=== PATIENT | female | born 1990 | race African-American/Black ===

== ENCOUNTER 2016-07-21 09:11 | Emergency (ER) | payer OTHER ==
[2016-07-21] MEDS ORDERED: AMOXicillin 250 MG CAP ONE (09:40)
[2016-07-21] MEDS ORDERED: diphenhydrAMINE HCl 25 MG CAP ONE (09:40)
[2016-07-21] MEDS ORDERED: HYDROcodone/Acetaminophen 10/325 mg Tablet ONE (09:40)
== END 2016-07-21 09:54 | disposition home or self-care (01) ==
LOC: MADERS 09:11
DX: K04.7 Periapical abscess without sinus (principal)
CPT/HCPCS: 99283

== ENCOUNTER 2016-07-22 23:01 | Emergency (ER) | payer OTHER ==
[2016-07-22] MEDS ORDERED: Acetaminophen/Codeine 30-300mg Tablet ONE (23:29)
[2016-07-22] MEDS ORDERED: Lidocaine Viscous Sol 2% 15 ml UD Cup ONE (23:30)
[2016-07-22] MEDS ORDERED: Clindamycin 150 MG CAP ONE (23:30)
== END 2016-07-22 23:58 | disposition home or self-care (01) ==
LOC: MADERS 23:01
DX: K05.10 Chronic gingivitis, plaque induced (principal); Z79.2 Long term (current) use of antibiotics; Z79.899 Other long term (current) drug therapy
CPT/HCPCS: 99282

== ENCOUNTER 2016-08-15 21:07 | Emergency (ER) | payer OTHER ==
[2016-08-15] MEDS ORDERED: Acetaminophen 500 MG TAB ONE (21:42)
[2016-08-15] MEDS ORDERED: Ondansetron ODT 4 MG TAB ONE (21:42)
[2016-08-15] MEDS ORDERED: Penicillin V Potassium 250 MG TAB ONE (21:42)
== END 2016-08-15 22:03 | disposition home or self-care (01) ==
LOC: MADERS 21:07
DX: J02.0 Streptococcal pharyngitis (principal); E86.0 Dehydration; D64.9 Anemia, unspecified
CPT/HCPCS: 87430; 99283; Q0162

== ENCOUNTER 2017-11-25 10:08 | Emergency (ER) | payer MEDICAID, OTHER ==
[2017-11-25 10:51] LABS: Bilirubin Small (Negative); Blood, Urine Negative (Negative); Glucose, Urine (Dipstick) Negative (Negative); Leukocyte Negative (Negative); Nitrite Negative (Negative); Protein, Urine (Dipstick) 30 mg/dL (Neg-Trace)
[2017-11-25 10:57] LABS: Clarity Cloudy (Clear); Pregnancy Test - Urine (BHCG) Negative (Negative); Specific Gravity, Urine 1.033 (1.002-1.036)
[2017-11-25] MEDS ORDERED: Ondansetron ODT 4 MG TAB ONE (10:57)
[2017-11-25 10:58] LABS: Pregu Control Background? CLEAR/WHITE (CLR/WHITE); Pregu Control Bar Appear? YES (CONTROL BAR); Specific Gravity 1.033 (1.002-1.036)
[2017-11-25 11:03] LABS: RBC/HPF None Seen HPF (0-3); WBC/HPF 0-3 HPF (0-3)
[2017-11-25 11:04] LABS: Bacteria/HPF 2+ HPF (None Seen); Crystals/HPF 2+ AMORPH URATES HPF (Negative)
[2017-11-25 11:25] LABS: Hemoglobin 13.3 g/dL (12.0-16.0); Lymphocytes 25 % (21-51); MDiff Complete? YES; Mean Corpuscular HGB CONC 31.6 g/dL (32.0-36.0); Mean Corpuscular Hemoglobin 28.9 pg (27.0-31.0); Mean Corpuscular Volume 91.5 fL (78.0-98.0); Mean Platelet Volume 6.6 fL (7.4-10.4); Monocytes 4 % (0-10); Neutrophil 62 % (42-75); PLT Morphology Comment Appears Increased; Platelet Count 436 thou/uL (130-400); RBC Distribution Width 11.7 % (11.5-14.5); RBC Morphology Normal; Reactive Lymphocytes 9 % (0-10); White Blood Cell (WBC) Count 6.7 thou/uL (4.8-10.8)
[2017-11-25 11:30] LABS: ALT (SGPT) 16 U/L (8-55); AST (SGOT) 11 U/L (5-34); Alkaline Phosphatase 62 U/L (40-150); Anion Gap 11 mmol/L (10-20); BUN (Urea Nitrogen) 9 mg/dL (7.0-18.7); Bilirubin, Total 0.6 mg/dL (0.2-1.2); Calc. Creatinine Clearance 0 mL/min (70-130); Calcium 9.3 mg/dL (7.8-10.44); Carbon Dioxide 27 mmol/L (22-29); Chloride 106 mmol/L (98-107); Estimated GFR-MDRD Greater than 90; Globulin 3.6 g/dL (2.4-3.5); Glucose 98 mg/dL (70-105); Lipase 30 U/L (8-78); Potassium 3.8 mmol/L (3.5-5.1); Protein, Total 7.6 g/dL (6.0-8.3); Sodium 140 mmol/L (136-145)
== END 2017-11-25 12:00 | disposition home or self-care (01) ==
LOC: MADERS 10:08
DX: R11.2 Nausea with vomiting, unspecified (principal); D64.9 Anemia, unspecified; F17.210 Nicotine dependence, cigarettes, uncomplicated
CPT/HCPCS: 36415; 80053; 81003; 81015; 81025; 83690; 85025; 99284; Q0162

== ENCOUNTER 2017-12-09 17:40 | Emergency (ER) | payer MEDICAID ==
[~2017-12-09 17:40] MED LIST: Sodium Chloride 0.9% 1,000 ML BAG ONE
[2017-12-09 18:56] LABS: #Basophils 0.1 thou/uL (0.0-0.2); #Eosinphils 0.1 thou/uL (0.0-0.7); #Lymphocytes 2.6 thou/uL (1.20-3.40); #Monocytes 0.3 thou/uL (0.11-0.59); #Neutrophils 3.7 thou/uL (1.40-6.50); %Basophils 1.1 % (0.0-1.0); %Eosinophils 1.2 % (0.0-10.0); %Lymphocytes 38.3 % (21.0-51.0); %Monocytes 4.9 % (0.0-10.0); %Neutrophils 54.4 % (42.0-75.0); Mean Corpuscular HGB CONC 32.1 g/dL (32.0-36.0); Mean Corpuscular Hemoglobin 29.6 pg (27.0-31.0); Mean Corpuscular Volume 92.1 fL (78.0-98.0); Mean Platelet Volume 6.8 fL (7.4-10.4); Platelet Count 443 thou/uL (130-400); RBC Distribution Width 12.2 % (11.5-14.5); Red Blood Cell (RBC) Count 4.72 mill/uL (4.20-5.40); White Blood Cell (WBC) Count 6.8 thou/uL (4.8-10.8)
[2017-12-09] MEDS ORDERED: diphenhydrAMINE 50 MG/ML VIAL ONE (18:58)
[2017-12-09] MEDS ORDERED: Promethazine HCl 25 MG/ML VIAL ONE (18:58)
[2017-12-09 18:59] LABS: PTT 25.7 SEC (22.9-36.1); Prothrombin Time 12.8 SEC (12.0-14.7)
[2017-12-09 19:07] LABS: Anion Gap 14 mmol/L (10-20); BUN (Urea Nitrogen) 6 mg/dL (7.0-18.7); Calc. Creatinine Clearance 0 mL/min (70-130); Calcium 9.5 mg/dL (7.8-10.44); Carbon Dioxide 26 mmol/L (22-29); Chloride 103 mmol/L (98-107); Estimated GFR-MDRD Greater than 90; Glucose 92 mg/dL (70-105); Potassium 3.8 mmol/L (3.5-5.1); Sodium 139 mmol/L (136-145)
--- NOTE | 2017-12-09 19:30 | CT ---
NONCONTRAST CT HEAD: 12/09/17 HISTORY: Headache. Patient states headache is in the region of the frontal sinuses. COMPARISON: 08/10/12. FINDINGS: There is no evidence of a hemorrhage, acute infarction, mass effect, or midline shift. Ventricular sy stem is normal in size, shape and position. The asymmetric area of increased density on the right in the expected location of the transverse sinus noted on the prior study is not visualized on today's e xamination. The visualized paranasal sinuses and mastoid air cells are clear. The osseous structures are intact. IMPRESSION: No acute intracranial abnormality is demonstrated. POS: H
[2017-12-09 20:04] LABS: Pregnancy Test - Urine (BHCG) Negative (Negative); Pregu Control Background? CLEAR/WHITE (CLR/WHITE); Pregu Control Bar Appear? YES (CONTROL BAR); Specific Gravity 1.015 (1.002-1.036)
== END 2017-12-09 21:03 | disposition short-term general hospital (02) ==
LOC: MADERS 17:40
DX: R51 Headache (principal); D64.9 Anemia, unspecified; F17.210 Nicotine dependence, cigarettes, uncomplicated
CPT/HCPCS: 70450; 80048; 81025; 85025; 85610; 85730; 96361; 96374; 96375; 99406; J1200; J2550; J7050

== ENCOUNTER 2018-04-25 18:37 | Emergency (ER) | payer MEDICAID, SELFPAY | END 2018-04-25 20:50 | disposition home or self-care (01) | LOC: MADERS 18:37 | DX: J06.9 Acute upper respiratory infection, unspecified (principal); F17.210 Nicotine dependence, cigarettes, uncomplicated; D64.9 Anemia, unspecified | CPT/HCPCS: 99283 ==

== ENCOUNTER 2018-05-10 14:51 | Emergency (ER) | payer SELFPAY ==
[2018-05-10] MEDS ORDERED: Prochlorperazine 10 MG/2 ML VIAL ONE (15:12)
[2018-05-10 15:20] LABS: Pregnancy Test - Urine (BHCG) Negative (Negative); Pregu Control Background? CLEAR/WHITE (CLR/WHITE); Pregu Control Bar Appear? YES (CONTROL BAR); Specific Gravity 1.015 (1.002-1.036)
== END 2018-05-10 15:45 | disposition home or self-care (01) ==
LOC: MADERS 14:51
DX: A05.9 Bacterial foodborne intoxication, unspecified (principal); F17.210 Nicotine dependence, cigarettes, uncomplicated
CPT/HCPCS: 81025; 96372; J0780

== ENCOUNTER 2019-02-22 20:11 | Emergency (ER) | payer SELFPAY ==
[2019-02-22 21:26] LABS: BHCG - Serum Negative (NEGATIVE); Band 2 % (5-11); Eosinophils 2 % (0-10); Hemoglobin 13.6 g/dL (12.0-16.0); Lymphocytes 41 % (21-51); MDiff Complete? YES; Mean Corpuscular HGB CONC 30.8 g/dL (32.0-36.0); Mean Corpuscular Hemoglobin 29.1 pg (27.0-31.0); Mean Corpuscular Volume 94.3 fL (78.0-98.0); Mean Platelet Volume 6.6 fL (7.4-10.4); Monocytes 5 % (0-10); Neutrophil 50 % (42-75); Platelet Count 430 thou/uL (130-400); Pregs Control Background? CLEAR/WHITE (CLR/WHITE); Pregs Control Bar Appear? YES (CONTROL BAR); RBC Distribution Width 12.1 % (11.5-14.5); Red Blood Cell (RBC) Count 4.69 mill/uL (4.20-5.40); White Blood Cell (WBC) Count 7.9 thou/uL (4.8-10.8)
[2019-02-22 21:27] LABS: ALT (SGPT) 19 U/L (8-55); AST (SGOT) 12 U/L (5-34); Albumin 3.9 g/dL (3.5-5.0); Alkaline Phosphatase 54 U/L (40-110); Anion Gap 14 mmol/L (10-20); BUN (Urea Nitrogen) 10 mg/dL (7.0-18.7); Bilirubin, Total 0.4 mg/dL (0.2-1.2); Calc. Creatinine Clearance 0 mL/min (70-130); Carbon Dioxide 26 mmol/L (22-29); Chloride 104 mmol/L (98-107); Estimated GFR-MDRD Greater than 90; Globulin 3.4 g/dL (2.4-3.5); Glucose 89 mg/dL (70-105); Potassium 3.7 mmol/L (3.5-5.1); Protein, Total 7.3 g/dL (6.0-8.3); Sodium 140 mmol/L (136-145)
== END 2019-02-22 22:01 | disposition home or self-care (01) ==
LOC: MADERS 20:11
DX: R42 Dizziness and giddiness (principal); R20.0 Anesthesia of skin; D64.9 Anemia, unspecified; F17.210 Nicotine dependence, cigarettes, uncomplicated
CPT/HCPCS: 36415; 80053; 83880; 84484; 84703; 85025; 93005

== ENCOUNTER 2019-03-18 11:02 | Emergency (ER) | payer SELFPAY ==
--- NOTE | 2019-03-18 12:07 | RAD ---
EXAM: Chest Two Views 03/18/2019 12:05 PM HISTORY: Cough and shortness of breath COMPARISON: March 27, 2015 FINDINGS: Heart: Normal in size and contour. Pulmonary vessels: Normal. Costophrenic angles: Clear. Lungs: No acute airspace consolidation. Pneumothorax: None. Osseous structures:Intact. Additional findings: None. IMPRESSION: No significant acute intrathoracic disease.
== END 2019-03-18 12:26 | disposition home or self-care (01) ==
LOC: MADERS 11:02
DX: J18.9 Pneumonia, unspecified organism (principal); H10.022 Other mucopurulent conjunctivitis, left eye; J45.909 Unspecified asthma, uncomplicated; D64.9 Anemia, unspecified; F17.210 Nicotine dependence, cigarettes, uncomplicated
CPT/HCPCS: 71046; 87804

== ENCOUNTER 2019-05-02 09:40 | Emergency (ER) | payer SELFPAY ==
[2019-05-02 10:31] LABS: #Basophils 0.1 thou/uL (0.0-0.2); #Eosinphils 0.1 thou/uL (0.0-0.7); #Lymphocytes 2.3 thou/uL (1.20-3.40); #Monocytes 0.3 thou/uL (0.11-0.59); #Neutrophils 2.5 thou/uL (1.40-6.50); %Basophils 1.5 % (0.0-1.0); %Eosinophils 1.7 % (0.0-10.0); %Monocytes 5.3 % (0.0-10.0); %Neutrophils 47.4 % (42.0-75.0); Hemoglobin 13.2 g/dL (12.0-16.0); Mean Corpuscular HGB CONC 30.4 g/dL (32.0-36.0); Mean Corpuscular Hemoglobin 28.1 pg (27.0-31.0); Mean Corpuscular Volume 92.7 fL (78.0-98.0); Mean Platelet Volume 6.5 fL (7.4-10.4); Platelet Count 429 thou/uL (130-400); RBC Distribution Width 12.4 % (11.5-14.5); Red Blood Cell (RBC) Count 4.69 mill/uL (4.20-5.40); White Blood Cell (WBC) Count 5.3 thou/uL (4.8-10.8)
[2019-05-02 10:48] LABS: Bilirubin Negative (Negative); Blood, Urine Negative (Negative); Clarity Hazy (Clear); Glucose, Urine (Dipstick) Negative (Negative); Leukocyte Negative (Negative); Nitrite Negative (Negative); Pregnancy Test - Urine (BHCG) Negative (Negative); Protein, Urine (Dipstick) Negative (Neg-Trace); Urobilinogen 0.2 mg/dL (Less than 2)
[2019-05-02 10:49] LABS: Pregu Control Background? CLEAR/WHITE (CLR/WHITE); Pregu Control Bar Appear? YES (CONTROL BAR)
[2019-05-02] MEDS ORDERED: HYDROcodone/Acetaminophen 5/325 mg Tablet ONE (11:02)
== END 2019-05-02 11:12 | disposition home or self-care (01) ==
LOC: MADERS 09:40
DX: O03.9 Complete or unspecified spontaneous abortion without complication (principal); J45.909 Unspecified asthma, uncomplicated; D64.9 Anemia, unspecified; F17.210 Nicotine dependence, cigarettes, uncomplicated
CPT/HCPCS: 51701; 81003; 81025; 84702; 85025; 86900; 86901; J7050

== ENCOUNTER 2019-05-31 01:53 | Emergency (ER) | payer SELFPAY ==
[2019-05-31] MEDS ORDERED: Acetaminophen 500 MG TAB ONE (02:30)
== END 2019-05-31 02:38 | disposition home or self-care (01) ==
LOC: MADERS 01:53
DX: S13.4XXA Sprain of ligaments of cervical spine, initial encounter (principal); S00.93XA Contusion of unspecified part of head, initial encounter; F17.210 Nicotine dependence, cigarettes, uncomplicated; J45.909 Unspecified asthma, uncomplicated; D64.9 Anemia, unspecified; W20.8XXA Other cause of strike by thrown, projected or falling object, initial encounter
CPT/HCPCS: 99283

== ENCOUNTER 2019-11-07 14:32 | Emergency (ER) | payer SELFPAY ==
[2019-11-07] MEDS ORDERED: diphenhydrAMINE 25 MG CAP ONE (14:59)
== END 2019-11-07 15:43 | disposition home or self-care (01) ==
LOC: MADERS 14:32
DX: T63.421A Toxic effect of venom of ants, accidental (unintentional), initial encounter (principal); L29.9 Pruritus, unspecified; J45.909 Unspecified asthma, uncomplicated; F17.210 Nicotine dependence, cigarettes, uncomplicated
CPT/HCPCS: 99282; Q0163

== ENCOUNTER 2019-11-08 15:15 | Emergency (ER) | payer SELFPAY | END 2019-11-08 16:00 | disposition home or self-care (01) | LOC: MADERS 15:15 | DX: T63.421A Toxic effect of venom of ants, accidental (unintentional), initial encounter (principal); Z71.6 Tobacco abuse counseling; J45.909 Unspecified asthma, uncomplicated; F17.210 Nicotine dependence, cigarettes, uncomplicated | CPT/HCPCS: 99406 ==